=== PATIENT | male | born 1930 | race Caucasian/White ===

== ENCOUNTER 2017-07-10 10:41 | Emergency (ER) | payer MEDICARE, OTHER ==
[~2017-07-10] VITALS: Ht 167.6 cm; Wt 68.0 kg
[2017-07-10 11:05] LABS: BASOPHILS # (AUTO) 0.1 K/uL (0.0-8.0); BASOPHILS % (AUTO) 0.6 % (0.0-2.0); EOSINOPHILS % (AUTO) 0.4 % (0.0-7.0); HEMATOCRIT 46.3 % (36.7-47.1); HEMOGLOBIN 15.9 g/dL (12.5-16.3); LYMPHOCYTES # (AUTO) 6.8 K/uL (20.0-40.0); LYMPHOCYTES % (AUTO) 55.4 % (20.5-51.5); MEAN CORPUSCULAR HEMOGLOBIN 27.8 uug (23.8-33.4); MEAN CORPUSCULAR HGB CONC 34 g/dL (32.5-36.3); MONOCYTES # (AUTO) 0.7 K/uL (2.0-10.0); NEUTROPHILS # (AUTO) 4.6 K/uL (1.8-8.9); NEUTROPHILS % (AUTO) 37.6 % (38.5-71.5); PLATELET COUNT (AUTO) 178 K/uL (152-348); RED BLOOD CELL COUNT(AUTO) 5.72 MIL/uL (4.06-5.63); WHITE BLOOD COUNT (AUTO) 12.3 K/uL (3.6-10.2)
--- NOTE | 2017-07-10 11:11 | NUR ---
PT IS IN ROOM #2A. DR YU EVALUATED THE PT.
[2017-07-10 11:14] LABS: CARBON DIOXIDE 21 mmol/L (21-32); CHLORIDE 102 mmol/L (98-107); GLUCOSE 82 mg/dL (74-106); POTASSIUM 3.8 mmol/L (3.5-5.1); UREA NITROGEN, BLOOD 18 mg/dL (7-18)
[2017-07-10 11:20] LABS: ALANINE AMINOTRANSFERASE 32 U/L (16-63); ALKALINE PHOSPHATASE 56 U/L (50-136); ASPARTATE AMINOTRANSFERASE 25 U/L (15-37); BILIRUBIN,DIRECT 0.3 mg/dL (0.0-0.2); BILIRUBIN,TOTAL 1.1 mg/dL (0.2-1.0); TOTAL PROTEIN, SERUM 7.5 g/dL (6.4-8.2)
[2017-07-10] MEDS ORDERED: LORA-258 PO (11:22)
[2017-07-10] MEDS ORDERED: CITA40TA22 PO (11:22)
[2017-07-10] MEDS ORDERED: QUET25TA PO (11:22)
[2017-07-10] MEDS ORDERED: CITA20TA11 PO (11:22)
[2017-07-10] MEDS ORDERED: ROSU10TA PO (11:22)
[2017-07-10] MEDS ORDERED: LOSA50TA21 PO (11:22)
[2017-07-10] MEDS ORDERED: DONE5TAB34 PO (11:22)
[2017-07-10 12:11] LABS: BASOPHILS % (MANUAL) 1 % (0-2); LYMPHOCYTES % (MANUAL) 50 % (20-40); MONOCYTES % (MANUAL) 6 % (2-10); NEUTROPHILS % (MANUAL) 43 % (42-75)
--- NOTE | 2017-07-10 12:28 | NUR ---
PT WAS D/C TO HOME AFTER DR YU RE-EVALUATION. D/C INSTRUCTIONS GIVEN TO THE PT.
[2017-07-10 12:29] VITALS: BP 146/75
== END 2017-07-10 12:45 | disposition home or self-care (01) ==
LOC: ER 10:41
DX: S43.102A Unspecified dislocation of left acromioclavicular joint, initial encounter (principal); M25.512 Pain in left shoulder; Z88.5 Allergy status to narcotic agent; X58.XXXA Exposure to other specified factors, initial encounter; Y93.89 Activity, other specified; Y92.89 Other specified places as the place of occurrence of the external cause; Y99.8 Other external cause status
CPT/HCPCS: 36415; 70030-TC; 71045; 73030; 85025; 85730; 93005; A4663; J7030

== ENCOUNTER 2019-12-22 18:42 | Inpatient (IN) | payer MEDICARE, OTHER ==
[~2019-12-22] VITALS: Ht 165.1 cm; Wt 66.7 kg
[~2019-12-22 18:42] MED LIST: CITA20TA16 PO; CITA40TA22 PO; DONE5TAB34 PO; LORA-258 PO; LOSA50TA39 PO; QUET25TA PO; ROSU10TA2 PO
--- NOTE | 2019-12-22 18:47 | NUR ---
pt bib ra 83 from home co fever. pt speaking farsi only, poor historian. denies pain or sob. only co being cold. covid precautions implemented
[2019-12-22] MEDS ORDERED: ACETAMINOPHEN ES 500 MG TABLET PO ONE (19:00)
[2019-12-22] MEDS ORDERED: ACETAMINOPHEN ES 500 MG TABLET ONE (19:10)
[2019-12-22 19:14] LABS: BASOPHILS % (AUTO) 0.4 % (0.0-2.0); EOSINOPHILS % (AUTO) 0.2 % (0.0-7.0); HEMATOCRIT 36.3 % (36.7-47.1); HEMOGLOBIN 12.1 g/dL (12.5-16.3); LYMPHOCYTES # (AUTO) 2.5 K/uL (20.0-40.0); LYMPHOCYTES % (AUTO) 25.1 % (20.5-51.5); MEAN CORPUSCULAR HEMOGLOBIN 27.3 uug (23.8-33.4); MEAN CORPUSCULAR HGB CONC 33 g/dL (32.5-36.3); MONOCYTES # (AUTO) 0.8 K/uL (2.0-10.0); MONOCYTES % (AUTO) 8.3 % (0.0-11.0); NEUTROPHILS # (AUTO) 6.5 K/uL (1.8-8.9); PLATELET COUNT (AUTO) 110 K/uL (152-348); RED BLOOD CELL COUNT(AUTO) 4.43 MIL/uL (4.06-5.63); WHITE BLOOD COUNT (AUTO) 9.9 K/uL (3.6-10.2)
[2019-12-22 19:24] LABS: CREATININE 1.2 mg/dL (0.6-1.3); POTASSIUM 4.2 mmol/L (3.5-5.1)
[2019-12-22 19:41] LABS: BILIRUBIN,TOTAL 0.7 mg/dL (0.2-1.0); TOTAL PROTEIN, SERUM 6.7 g/dL (6.4-8.2)
--- NOTE | 2019-12-22 19:50 | NUR ---
Paged Epic panel credit and collections representative. Waiting for DR Juan Flores to call back.
[2019-12-22] MEDS ORDERED: AZITHROMYCIN IV 500 MG in IV DEXTROSE 5% 250 ML IV ONE (20:00)
[2019-12-22] MEDS ORDERED: CEFTRIAXONE 1 G in IV DEXTROSE 5% 50 ML IV ONE (20:00)
--- NOTE | 2019-12-22 20:00 | NUR ---
pt refused paniagua cath
[2019-12-22] MEDS ORDERED: CEFTRIAXONE /D5W 50ML IVPB **ER PYXIS IV ONE (20:01)
--- NOTE | 2019-12-22 20:16 | NUR ---
Dr. Baldwin on panel call with Dr. Martinez
[2019-12-22] MEDS ORDERED: AZITHROMYCIN 500MG/ D5W 250ML IVPB **ER PYXIS ONLY IV ONE (20:33)
--- NOTE | 2019-12-22 20:54 | NUR ---
Pt's temp 98.2
--- NOTE | 2019-12-22 21:00 | NUR ---
report given to ROXIE Arambula
--- NOTE | 2019-12-22 21:35 | NUR ---
PT admitted from ER via [place] under the care of with the dx of sepsis , pneumonia and r/o covid assisted assessment done.alert with periods of confusion,able to follow simple commands, denies pain , no facial grimaces of discomfort, no s/s of distress noted. IV line on right forearm 20 g patent and intact, no s/s of infiltration. Skin issues and photos taken .Call light with in reach .Will continue to monitor.
--- NOTE | 2019-12-22 21:43 | NUR ---
Pt. admitted to Tele Room 318 , under care of Dr. Martinez Belongs List completed, All belongings with pt no s/s of distress respirations even and unlabored transported pt via gurney 2 RNs
[2019-12-22] MEDS ORDERED: ONDANSETRON 4 MG/2 ML VIAL IV PRN (21:45)
[2019-12-22] MEDS ORDERED: MAGNESIUM HYDROXIDE 30 ML LIQUID UDC PO PRN (21:45)
[2019-12-22] MEDS ORDERED: LORAZEPAM 0.5 MG TABLET PO PRN (21:45)
[2019-12-22] MEDS ORDERED: Z GUARD REMEDY PASTE 57 GM TUBE TOP PRN (21:45)
[2019-12-22] MEDS ORDERED: ZOLPIDEM 5 MG TABLET PO PRN (21:45)
[2019-12-22] MEDS ORDERED: HYDROCODONE/APAP 5-325MG TABLET PO PRN (21:45)
[2019-12-22] MEDS ORDERED: ACETAMINOPHEN 325 MG TABLET PO PRN (21:45)
[2019-12-22 22:00] VITALS: BP 112/51
[2019-12-22] MEDS: IV NS 1000 ML 1,000 ML IV PRN (22:30)
[2019-12-22] MEDS ORDERED: ALBUTEROL SULFATE 2.5 MG/3 ML NEBU NEB PRN (22:45)
[2019-12-22] MEDS: ENOXAPARIN SODIUM 30 MG/0.3 ML DISP.SYRIN SQ SCH (23:03)
[2019-12-23 00:28] VITALS: BP 109/56
[2019-12-23 04:26] LABS: BASOPHILS % (AUTO) 0.2 % (0.0-2.0); EOSINOPHILS % (AUTO) 0.1 % (0.0-7.0); HEMATOCRIT 36.6 % (36.7-47.1); HEMOGLOBIN 12.3 g/dL (12.5-16.3); LYMPHOCYTES # (AUTO) 6.9 K/uL (20.0-40.0); LYMPHOCYTES % (AUTO) 47.4 % (20.5-51.5); MEAN CORPUSCULAR HEMOGLOBIN 27.3 uug (23.8-33.4); MEAN CORPUSCULAR HGB CONC 34 g/dL (32.5-36.3); MEAN CORPUSCULAR VOLUME 81.2 fL (73.0-96.2); NEUTROPHILS # (AUTO) 6.6 K/uL (1.8-8.9); NEUTROPHILS % (AUTO) 45.3 % (38.5-71.5); PLATELET COUNT (AUTO) 107 K/uL (152-348); RED BLOOD CELL COUNT(AUTO) 4.51 MIL/uL (4.06-5.63); WHITE BLOOD COUNT (AUTO) 14.7 K/uL (3.6-10.2)
[2019-12-23 04:47] LABS: THYROID STIMULATING HORMONE 0.78 mIU/mL (0.358-3.740)
[2019-12-23 04:48] LABS: CREATININE 1.1 mg/dL (0.6-1.3); PHOSPHOROUS 3.4 mg/dL (2.5-4.9); POTASSIUM 3.7 mmol/L (3.5-5.1)
[2019-12-23 05:10] VITALS: BP 144/55
[2019-12-23] MEDS: PANTOPRAZOLE SODIUM 40 MG TABLET.DR PO SCH (06:29)
--- NOTE | 2019-12-23 06:33 | NUR ---
Patient slept throughout the night, no s/s of distress noted, afebrile, on tele monitor sinus rhythm , on IV fluid running at 75 cc/hr ,IV site on left upper arm .Call light within reach.Safety measure and isolation implemented.Will endorse to the oncoming shift.
--- NOTE | 2019-12-23 07:41 | NUR ---
RECEIVED IN BED PATIENT IS ALERT BUT HAS LANGUAGE ISSUES ALL NEEDS ANTICIPATED AND SATISFIED REMAIN ON IVF ORDERED WITH NO S/S OF INFILTERATION ON SITE.ATTEMPTS ARE BEING MADE TO COLLECT URINE ORDERED.CALL LIGHTS AND PERSONAL BELONGINGS ARE WITHIN EASY REACH MADE COMFORTABLE WILL CONTINUE TO OBSERVE
[2019-12-23] MEDS: CHOLECALCIFEROL 1,000 UNIT TABLET PO SCH (08:23)
[2019-12-23] MEDS: CITALOPRAM 20 MG TABLET PO SCH (08:23)
[2019-12-23] MEDS: ASCORBIC ACID 500 MG TABLET PO SCH (08:24)
[2019-12-23] MEDS: LOSARTAN POTASSIUM 50 MG TABLET PO SCH (08:25)
[2019-12-23] MEDS: ZINC SULFATE 220 MG CAPSULE PO SCH (08:25)
[2019-12-23] MEDS: IV NS 1000 ML 1,000 ML IV PRN (11:45)
[2019-12-23 12:00] VITALS: BP 100/58
[2019-12-23 12:12] LABS: *BILIRUBIN,URIN NEGATIVE (NEGATIVE); *BLOOD, URINE 1+ (NEGATIVE); *CLARITY,URINE CLOUDY (CLEAR); *COLOR,URINE DARK YELLOW (YELLOW); *KETONES,URINE NEGATIVE (NEGATIVE); LEUKOCYTE ESTERASE ,URINE 3+ (NEGATIVE); NITRITE, URINE POSITIVE (NEGATIVE); UGLUCOSE NEGATIVE (NEGATIVE)
--- NOTE | 2019-12-23 12:25 | NUR ---
DR SPRINGER HERE TO SEE PATIENT PER PATIENTS HE IS HAVING PAIN ON HIS LEFT AND RIGHT KNEES MD NOTIFIED WITH ORDER TO DO XRAYS OF BOTH KNEES AND NOTED
[2019-12-23 16:00] LABS: BACTERIA,URINE 2+ /HPF (NONE SEEN); WBC,URINE 20-50 /HPF (0-3)
[2019-12-23 16:33] VITALS: BP 105/46
--- NOTE | 2019-12-23 17:46 | NUR ---
PER THE CHECK WRITER CALL RECEIVED FROM THE LAB THAT PATIENT IS COVID NEGATIVE.
--- NOTE | 2019-12-23 18:28 | NUR ---
PER THE TICKER INSTALLER PATIENT WILL BE SEEN BY THE INFECTIOUS DISEASE DR RENNER WHO WILL THEN MAKE THE DECISION IF PATIENT CAN BE OFF ISOLATION
--- NOTE | 2019-12-23 18:46 | NUR ---
ATTYANA SLITTING MACHINE OPERATOR HELPER HERE TO SEE PATIENT AWAITING FOR ORDERS.
--- NOTE | 2019-12-23 19:20 | NUR ---
Received pt in bed, awake. Patient has no s/s of acute distress or pain at this time. V/S stable, on room air saturating WNL. IV on RFA is intact with NS running at 75cc. Safety measures in place. Call light within reach. Bed low and locked in position. Will continue with the plan of care.
[2019-12-23 20:00] VITALS: BP 94/52
[2019-12-23] MEDS: DONEPEZIL 5 MG TABLET PO SCH (20:16)
[2019-12-23] MEDS: ATORVASTATIN 10 MG TABLET PO SCH (20:16)
[2019-12-23] MEDS: CEFEPIME HCL 1 G in IV DEXTROSE 5% 50 ML IV SCH (20:16)
[2019-12-23] MEDS: QUETIAPINE FUMARATE 25 MG TABLET PO SCH (20:16)
[2019-12-23] MEDS: ENOXAPARIN SODIUM 30 MG/0.3 ML DISP.SYRIN SQ SCH (20:19)
[2019-12-23] MEDS ORDERED: AZITHROMYCIN IV 500 MG in IV DEXTROSE 5% 250 ML IV SCH (21:00)
[2019-12-23] MEDS ORDERED: CEFTRIAXONE 1 G in IV DEXTROSE 5% 50 ML IV SCH (21:00)
--- NOTE | 2019-12-23 23:30 | NUR ---
Bladder scan shows 215 ml of urine. Will continue to monitor.
[2019-12-24] VITALS: BP 112/49
--- NOTE | 2019-12-24 02:00 | NUR ---
Bladder scan shows 650ml of urine. Initiated insertion of 16 fr. paniagua catheter per MD order. Paniagua is patent and draining garfield color urine. Will continue to monitor
[2019-12-24] MEDS: IV NS 1000 ML 1,000 ML IV PRN ×2 (03:07→16:45)
[2019-12-24 04:00] VITALS: BP 137/63
[2019-12-24] MEDS: PANTOPRAZOLE SODIUM 40 MG TABLET.DR PO SCH (06:06)
[2019-12-24 06:20] LABS: BASOPHILS % (AUTO) 0.4 % (0.0-2.0); EOSINOPHILS # (AUTO) 0.2 K/uL (0.0-0.7); EOSINOPHILS % (AUTO) 1.7 % (0.0-7.0); HEMATOCRIT 32.1 % (36.7-47.1); HEMOGLOBIN 10.9 g/dL (12.5-16.3); LYMPHOCYTES # (AUTO) 5.4 K/uL (20.0-40.0); LYMPHOCYTES % (AUTO) 51.6 % (20.5-51.5); MEAN CORPUSCULAR HEMOGLOBIN 27.5 uug (23.8-33.4); MEAN CORPUSCULAR HGB CONC 34 g/dL (32.5-36.3); MONOCYTES # (AUTO) 0.7 K/uL (2.0-10.0); NEUTROPHILS # (AUTO) 4.1 K/uL (1.8-8.9); NEUTROPHILS % (AUTO) 39.3 % (38.5-71.5); PLATELET COUNT (AUTO) 111 K/uL (152-348); RED BLOOD CELL COUNT(AUTO) 3.96 MIL/uL (4.06-5.63); WHITE BLOOD COUNT (AUTO) 10.5 K/uL (3.6-10.2)
[2019-12-24 06:48] LABS: CREATININE 0.9 mg/dL (0.6-1.3); MAGNESIUM 1.9 mg/dL (1.8-2.4); POTASSIUM 3.9 mmol/L (3.5-5.1)
--- NOTE | 2019-12-24 06:56 | NUR ---
Pt slept intermittently throughout the night. Patient is awake and has no s/s of acute distress or pain at this time.V/S stable on room air. NSR 69 on tele monitor. Patient on paniagua, draining well. Fall and aspiration precaution maintained. Comfort care and needs attended. Safety measures in place. Call light within reach. Will endorse to the oncoming nurse accordingly.
[2019-12-24] MEDS: CEFEPIME HCL 1 G in IV DEXTROSE 5% 50 ML IV SCH ×2 (08:13→20:24)
[2019-12-24] MEDS: CHOLECALCIFEROL 1,000 UNIT TABLET PO SCH (08:55)
[2019-12-24 08:56] VITALS: BP 134/61
[2019-12-24] MEDS: CITALOPRAM 20 MG TABLET PO SCH (08:56)
[2019-12-24] MEDS: ZINC SULFATE 220 MG CAPSULE PO SCH (08:56)
[2019-12-24] MEDS: ASCORBIC ACID 500 MG TABLET PO SCH (08:56)
[2019-12-24] MEDS: LOSARTAN POTASSIUM 50 MG TABLET PO SCH (08:57)
[2019-12-24 11:57] VITALS: BP 158/54
--- NOTE | 2019-12-24 14:50 | NUR ---
patient stayed in bed, PT eval in process, tolerated meals well, no sob, resp even nonlabored, no cough or congestion noted, saturating 98% at room air,on tele monitor, sinus rythm. skin warm and dry to touch, turned and repositioned every 2 hours, heels elevated. paniagua catheter in place, draining brown colored urine, on hydration fluids as ordered, no distress noted, continue to monitor, Addendum: 12/24/19 at 1454 by SAMANTHA AGUILAR RN, RN safety precautions are in place
[2019-12-24 16:10] VITALS: BP 115/58
--- NOTE | 2019-12-24 18:27 | NUR ---
noted with very yellow to light brown color of urine in catheter bag, PT eval done, patient ambulated with PT few steps.
--- NOTE | 2019-12-24 18:48 | NUR ---
noted right hand with pitting edema +2, elevated as tolerated, will continue to monitor, and endorse accordingly, IV site to right forearm is intact, no signs and symptoms of infiltration noted. no redness, no swelling noted at IV site.
[2019-12-24] MEDS: ATORVASTATIN 10 MG TABLET PO SCH (20:24)
[2019-12-24] MEDS: DONEPEZIL 5 MG TABLET PO SCH (20:24)
[2019-12-24] MEDS: QUETIAPINE FUMARATE 25 MG TABLET PO SCH (20:28)
[2019-12-24 20:30] VITALS: BP 134/52
[2019-12-24] MEDS ORDERED: TAMSULOSIN HCL 0.4 MG CAP.SR.24H PO SCH (21:00)
[2019-12-24] MEDS: ENOXAPARIN SODIUM 30 MG/0.3 ML DISP.SYRIN SQ SCH (21:19)
[2019-12-25] VITALS: BP 122/56
[2019-12-25 04:00] VITALS: BP 114/58
[2019-12-25] MEDS: PANTOPRAZOLE SODIUM 40 MG TABLET.DR PO SCH (06:07)
--- NOTE | 2019-12-25 06:28 | NUR ---
PATIENT ALERT BUT FORGETFUL NO SOB NO CHEST PAIN, PATIENT ON TELE MONITOR SINUS RHYTHM SINUS KAYLI FRANCISCO 50'S, MCFADDEN CATH PATENT DRAINING WITH YELLLOW COLOR URINE IN MODERATE AMOUNT, PATIENT HAS NO S/S OF PAIN AT THIS TIME, R ARM CONTINUE TO ELEVATE DUE SWELLING, PITTING EDEMA. CONT TO MONITOR.
[2019-12-25 06:32] LABS: BASOPHILS % (AUTO) 0.3 % (0.0-2.0); EOSINOPHILS # (AUTO) 0.3 K/uL (0.0-0.7); EOSINOPHILS % (AUTO) 2.5 % (0.0-7.0); HEMATOCRIT 34.1 % (36.7-47.1); HEMOGLOBIN 11.5 g/dL (12.5-16.3); LYMPHOCYTES # (AUTO) 5.8 K/uL (20.0-40.0); LYMPHOCYTES % (AUTO) 53.6 % (20.5-51.5); MEAN CORPUSCULAR HEMOGLOBIN 27.5 uug (23.8-33.4); MEAN CORPUSCULAR HGB CONC 34 g/dL (32.5-36.3); MEAN CORPUSCULAR VOLUME 81.5 fL (73.0-96.2); MONOCYTES # (AUTO) 0.8 K/uL (2.0-10.0); MONOCYTES % (AUTO) 7.1 % (0.0-11.0); NEUTROPHILS # (AUTO) 3.9 K/uL (1.8-8.9); NEUTROPHILS % (AUTO) 36.5 % (38.5-71.5); PLATELET COUNT (AUTO) 134 K/uL (152-348); RED BLOOD CELL COUNT(AUTO) 4.18 MIL/uL (4.06-5.63); WHITE BLOOD COUNT (AUTO) 10.8 K/uL (3.6-10.2)
[2019-12-25 06:55] LABS: CREATININE 0.9 mg/dL (0.6-1.3)
[2019-12-25 06:56] LABS: MAGNESIUM 1.9 mg/dL (1.8-2.4); PHOSPHOROUS 3.3 mg/dL (2.5-4.9)
[2019-12-25] MEDS: CEFEPIME HCL 1 G in IV DEXTROSE 5% 50 ML IV SCH (08:24)
[2019-12-25] MEDS: ASCORBIC ACID 500 MG TABLET PO SCH (08:24)
[2019-12-25] MEDS: LOSARTAN POTASSIUM 50 MG TABLET PO SCH (08:25)
[2019-12-25] MEDS: CHOLECALCIFEROL 1,000 UNIT TABLET PO SCH (09:15)
[2019-12-25] MEDS: ZINC SULFATE 220 MG CAPSULE PO SCH (09:15)
[2019-12-25] MEDS: CITALOPRAM 20 MG TABLET PO SCH (09:16)
[2019-12-25 11:47] VITALS: BP 113/50
[2019-12-25] MEDS ORDERED: ATOR10TA PO (18:29)
[2019-12-25] MEDS ORDERED: HYDR-3974 PO (18:29)
[2019-12-25] MEDS ORDERED: TAMS-3 PO (18:29)
[2019-12-25] MEDS ORDERED: PANT20TA2 PO (18:29)
== END 2019-12-25 15:15 | DRG 871 ==
LOC: ER 18:42 → TELE3 21:09
DX: A41.9 Sepsis, unspecified organism (principal); N17.0 Acute kidney failure with tubular necrosis; J98.11 Atelectasis; N39.0 Urinary tract infection, site not specified; M17.0 Bilateral primary osteoarthritis of knee; B96.5 Pseudomonas (aeruginosa) (mallei) (pseudomallei) as the cause of diseases classified elsewhere; Z92.21 Personal history of antineoplastic chemotherapy; G20 Parkinson's disease; F02.80 Dementia in other diseases classified elsewhere, unspecified severity, without behavioral disturbance, psychotic disturbance, mood disturbance, and anxiety; Z85.038 Personal history of other malignant neoplasm of large intestine; R74.0 Nonspecific elevation of levels of transaminase and lactic acid dehydrogenase [LDH]
CPT/HCPCS: 36415; 70030-TC; 71045; 76700; 83605; 83615; 83735; 84100; 84443; 85025; 85730; 86140; 87040; 87077; 87086; 93005; 93307; A4663; A9150; C1758; G0378; J0456; J0692; J0696; J1650; J3490; J7030; J7060; U0003-CS

== ENCOUNTER 2019-12-25 13:19 | Inpatient (IN) | payer MEDICARE, OTHER ==
[~2019-12-25] VITALS: Ht 165.1 cm; Wt 58.3 kg
[2019-12-25 16:23] VITALS: BP 135/62
[2019-12-25] MEDS ORDERED: TAMS-3 PO (18:29)
[2019-12-25] MEDS ORDERED: HYDR-3974 PO (18:29)
[2019-12-25] MEDS ORDERED: ATOR10TA PO (18:29)
[2019-12-25] MEDS ORDERED: PANT20TA2 PO (18:29)
[2019-12-25] MEDS ORDERED: LORAZEPAM 0.5 MG TABLET PO PRN (18:45)
[2019-12-25 20:00] VITALS: BP 121/42
[2019-12-25] MEDS: DONEPEZIL 5 MG TABLET PO SCH (20:11)
[2019-12-25] MEDS: levoFLOXacin 500 MG TABLET PO SCH (20:11)
[2019-12-25] MEDS: ATORVASTATIN 10 MG TABLET PO SCH (20:11)
[2019-12-25] MEDS: TAMSULOSIN HCL 0.4 MG CAP.SR.24H PO SCH (20:11)
[2019-12-25] MEDS: QUETIAPINE FUMARATE 25 MG TABLET PO SCH (20:14)
[2019-12-25] MEDS: HYDROCODONE/APAP 5-325MG TABLET PO PRN (20:15)
--- NOTE | 2019-12-25 20:53 | NUR ---
Received pt resting in bed and talking on the phone with family. No acute distress noted. C/o 6/10 pain on bilateral knees and legs, PRN pain med and other due meds given as ordered. Meds given crushed with pudding, tolerated well. Snacks given, with assist feeding and drinking. Turned and repositioned. Both heels offloaded. Safety measures maintained. Call light and personal items within reach. Will continue to monitor.
[2019-12-26 04:00] VITALS: BP 121/58
[2019-12-26] MEDS: PANTOPRAZOLE SODIUM 40 MG TABLET.DR PO SCH (06:13)
[2019-12-26 07:30] VITALS: BP 129/71
[2019-12-26] MEDS: CITALOPRAM 20 MG TABLET PO SCH (09:20)
[2019-12-26] MEDS: LOSARTAN POTASSIUM 50 MG TABLET PO SCH (09:20)
--- NOTE | 2019-12-26 09:30 | NUR ---
Patient is awake, alert, not in any form of distress, on room air. He denies any pain or discomfort at this time. Assisted patient with his feeding. Due medications administered crushed and tolerated well. Needs attended to promptly and met. Peripheral IV site 20 on the right wrist in place and patent with no signs of infection. Salter catheter intact, patent, draining clear yellow urine. Call light and frequently used items placed within patient's reach. Safety measures maintained.
[2019-12-26 15:53] VITALS: BP 117/56
--- NOTE | 2019-12-26 16:19 | NUR ---
INTERDISCIPLINARY TEAM CONFERENCE
[2019-12-26] MEDS: CARBIDOPA/LEVODOPA 25-100MG TABLET PO SCH ×2 (17:49→20:09)
--- NOTE | 2019-12-26 18:30 | NUR ---
Per Dr. Goss refer patient to neurology for hand tremors and was patient seen by Dr. Ivan and put in new orders.
[2019-12-26] MEDS: METHYL SALICYLATE/MENTHOL CREAM 28 GM TUBE TOP SCH ×2 (20:00→22:00)
[2019-12-26] MEDS: ATORVASTATIN 10 MG TABLET PO SCH (20:08)
[2019-12-26] MEDS: DONEPEZIL 5 MG TABLET PO SCH (20:08)
[2019-12-26] MEDS: levoFLOXacin 500 MG TABLET PO SCH (20:08)
[2019-12-26] MEDS: QUETIAPINE FUMARATE 25 MG TABLET PO SCH (20:09)
[2019-12-26] MEDS: TAMSULOSIN HCL 0.4 MG CAP.SR.24H PO SCH (20:09)
[2019-12-26 21:21] VITALS: BP 131/57
--- NOTE | 2019-12-26 23:30 | NUR ---
Received pt resting in bed. No acute distress noted. Denies pain/ discomfort. Due meds given as ordered. Meds given crushed with pudding, tolerated well. Snacks given, with assist feeding and drinking. Turned and repositioned. Both heels offloaded. Salter catheter in place, draining clear yellow colored urine. Safety measures maintained. Call light and personal items within reach. Will continue to monitor.
[2019-12-27] MEDS: HYDROCODONE/APAP 5-325MG TABLET PO PRN ×2 (04:43→09:18)
[2019-12-27 04:58] VITALS: BP 142/70
[2019-12-27] MEDS: METHYL SALICYLATE/MENTHOL CREAM 28 GM TUBE TOP SCH ×3 (05:43→21:04)
--- NOTE | 2019-12-27 06:02 | NUR ---
Salter catheter removed, pt tolerated well. Pt's temperature 99.6 F, cooling measures provided, given bed bath. [place] PRN given for pain. Will endorse accordingly to oncoming shift. Continue to monitor.
[2019-12-27] MEDS: PANTOPRAZOLE SODIUM 40 MG TABLET.DR PO SCH (06:04)
[2019-12-27 06:43] LABS: BASOPHILS % (AUTO) 0.3 % (0.0-2.0); EOSINOPHILS # (AUTO) 0.1 K/uL (0.0-0.7); HEMATOCRIT 32.4 % (36.7-47.1); LYMPHOCYTES # (AUTO) 4.9 K/uL (20.0-40.0); MEAN CORPUSCULAR HEMOGLOBIN 27.4 uug (23.8-33.4); MEAN CORPUSCULAR HGB CONC 34 g/dL (32.5-36.3); MEAN CORPUSCULAR VOLUME 80.9 fL (73.0-96.2); MONOCYTES # (AUTO) 1.1 K/uL (2.0-10.0); MONOCYTES % (AUTO) 9.4 % (0.0-11.0); NEUTROPHILS # (AUTO) 5.5 K/uL (1.8-8.9); NEUTROPHILS % (AUTO) 47.3 % (38.5-71.5); PLATELET COUNT (AUTO) 170 K/uL (152-348); WHITE BLOOD COUNT (AUTO) 11.7 K/uL (3.6-10.2)
[2019-12-27 07:02] LABS: CREATININE 0.8 mg/dL (0.6-1.3); POTASSIUM 4.1 mmol/L (3.5-5.1)
[2019-12-27 08:00] VITALS: BP 150/67
[2019-12-27] MEDS: LOSARTAN POTASSIUM 50 MG TABLET PO SCH (08:52)
[2019-12-27] MEDS: CITALOPRAM 20 MG TABLET PO SCH (08:52)
[2019-12-27] MEDS: CARBIDOPA/LEVODOPA 25-100MG TABLET PO SCH ×4 (08:52→20:53)
--- NOTE | 2019-12-27 13:20 | NUR ---
Received patient awake in bed in stable condition. Patient seen and examined by MD Goss. Patient left knee joint fluid remove by MD Goss with 12ml yellowish output-sent to lab for analysis and culture. Awaiting result. Patient discontinue paniagua catheter as ordered, catheter remove at 6am as per endorse. Patient continue ATB levaquin 500mg every 24hours for UTI. Patient no urine output until 1pm. Bladder scan- 362ml, straight catheter done with 620ml urine, yellowish with red color output. no foul smell noted. will continue monitor
[2019-12-27] MEDS: MAGNESIUM HYDROXIDE 30 ML LIQUID UDC PO PRN (14:51)
[2019-12-27 16:00] VITALS: BP 130/68
[2019-12-27] MEDS: levoFLOXacin 500 MG TABLET PO SCH (18:43)
[2019-12-27 20:03] VITALS: BP 122/52
[2019-12-27] MEDS: DONEPEZIL 5 MG TABLET PO SCH (20:52)
[2019-12-27] MEDS: ATORVASTATIN 10 MG TABLET PO SCH (20:52)
[2019-12-27] MEDS: QUETIAPINE FUMARATE 25 MG TABLET PO SCH (20:53)
[2019-12-27] MEDS: TAMSULOSIN HCL 0.4 MG CAP.SR.24H PO SCH (20:53)
--- NOTE | 2019-12-27 22:21 | NUR ---
Received patient in bed, head of bed elevated at 45 degrees. In no respiratory distress. No facial grimacing observed. Patient still with no urinary output since previous shift. Bladder scan done- 377mL. Straight catheter done per MD order, obtained 400mL of urine, garfield with few blood clots. Patient tolerated procedure well. Will continue to observe patient and monitor urinary output. Will continue to observe fall and safety precautions. Will continue to attend and anticipate needs.
--- NOTE | 2019-12-28 | NUR ---
Fluid analysis result of left knee aspiration relayed to Dr. Goss with no new order. Also made aware that culture of fluid is still pending.
[2019-12-28 04:03] VITALS: BP 125/68
[2019-12-28] MEDS: PANTOPRAZOLE SODIUM 40 MG TABLET.DR PO SCH (06:27)
[2019-12-28] MEDS: METHYL SALICYLATE/MENTHOL CREAM 28 GM TUBE TOP SCH ×3 (06:28→21:02)
--- NOTE | 2019-12-28 06:46 | NUR ---
Patient still with no urinary output. Bladder scan done- 384mL. Straight catheter done per MD order, obtained 610mL of urine, garfield with few blood clots. Patient tolerated procedure. Will endorse to AM nurse accordingly. All needs attended. Fall and safety precautions observed.
[2019-12-28 08:00] VITALS: BP 129/79
[2019-12-28] MEDS: CARBIDOPA/LEVODOPA 25-100MG TABLET PO SCH ×4 (09:08→21:01)
[2019-12-28] MEDS: LOSARTAN POTASSIUM 50 MG TABLET PO SCH (09:09)
[2019-12-28] MEDS: HYDROCODONE/APAP 5-325MG TABLET PO PRN ×2 (09:11→21:03)
[2019-12-28] MEDS: AMANTADINE HCL 100 MG CAPSULE PO SCH ×2 (10:20→21:02)
--- NOTE | 2019-12-28 12:49 | NUR ---
INDIVIDUALIZED PLAN OF CARE
--- NOTE | 2019-12-28 15:34 | NUR ---
straight cath performed with out put of 800ml garfield color urine
[2019-12-28 16:13] VITALS: BP 130/77
[2019-12-28] MEDS: MAGNESIUM HYDROXIDE 30 ML LIQUID UDC PO PRN (17:48)
--- NOTE | 2019-12-28 18:31 | NUR ---
no distress noted during shift, PT, OT tolerated well, kept clean and dry, heels floated, repositioned every 2 hours while in bed to relieve the pressure.
--- NOTE | 2019-12-28 18:54 | NUR ---
Patient noted with no BM, milk of magnesium administered as ordered, continue to monitor, will endorse accordingly
--- NOTE | 2019-12-28 19:30 | NUR ---
RECEIVED PT IN NO ACUTE DISTRESS WITH HEAD OF BED ELEVATED. SAFETY AND COMFORT PROVIDED. WILL CONTINUE TO MONITOR.
[2019-12-28 20:55] VITALS: BP 136/71
[2019-12-28] MEDS: DONEPEZIL 5 MG TABLET PO SCH (21:01)
[2019-12-28] MEDS: ATORVASTATIN 10 MG TABLET PO SCH (21:02)
[2019-12-28] MEDS: QUETIAPINE FUMARATE 25 MG TABLET PO SCH (21:02)
--- NOTE | 2019-12-28 23:40 | NUR ---
HANDS OFF REPORT TO NICK FAUSTIN. PT IN NO ACUTE DISTRESS. D/C BLADDER SCAN BECAUSE PT HAS MCFADDEN CATHETER INSERTED. ORDERED BY JOY JIMENEZ. SAFETY AND COMFORT PROVIDED. PT IN STABLE CONDITION.
[2019-12-29 04:08] VITALS: BP 134/68
[2019-12-29] MEDS: PANTOPRAZOLE SODIUM 40 MG TABLET.DR PO SCH (06:09)
[2019-12-29] MEDS: METHYL SALICYLATE/MENTHOL CREAM 28 GM TUBE TOP SCH ×3 (06:09→23:07)
--- NOTE | 2019-12-29 06:17 | NUR ---
PATIENT ALERT BUT FORGETFUL, NO S/S OF PAIN NOR DISCOMFORT. PATIENT MCFADDEN CATH PATENT DRAINING WITH TEA COLOR URINE IN SMALL AMOUNT. PATIENT WAS KEPT CLEAN AND DRY, CALL LIGHT WITHIN REACH. CONT TO MONITOR.
[2019-12-29] MEDS: AMANTADINE HCL 100 MG CAPSULE PO SCH ×2 (08:24→20:33)
[2019-12-29] MEDS: CARBIDOPA/LEVODOPA 25-100MG TABLET PO SCH ×3 (08:24→17:08)
[2019-12-29] MEDS: LOSARTAN POTASSIUM 50 MG TABLET PO SCH (08:24)
[2019-12-29] MEDS: HYDROCODONE/APAP 5-325MG TABLET PO PRN (09:00)
[2019-12-29 09:07] VITALS: BP 135/71
--- NOTE | 2019-12-29 11:48 | NUR ---
Received patient awake in bed in stable condition. Patient continue with paniagua catheter for urine retention. Intact and patent, Rose color and cloudy urine, no foul smell noted. Patient left knee swelling. Applied cold compress. Patient continue pain management prior to therapy with good effect. Patient continue monitoring by neurologist for tremors. Patient continue sinemet, no adverse reaction noted. will continue monitor
--- NOTE | 2019-12-29 12:11 | NUR ---
Received patient awake in bed. Patient continue on paniagua catheter with yellow color urine. Intact and patent. Patient continue therapy for increase strenght and therapeutic exercises. Patient continue pain management prior to therapy with good effect. Patient continue following by neurologist for tremors. Patient ongoing sinemet with fair effect. will continue monitor
--- NOTE | 2019-12-29 15:15 | NUR ---
Patient seen and examined by MD Ivan, order increase dose of sinemet 25-100mg in morning. will continue monitor
[2019-12-29 16:05] VITALS: BP 132/68
[2019-12-29] MEDS ORDERED: CARBIDOPA/LEVODOPA 25-100MG TABLET PO SCH (18:00)
--- NOTE | 2019-12-29 19:00 | NUR ---
PATIENT AWAKE BUT FORGETFUL NO SOB NO CHEST PAIN. PATIENT HAS NO COMPLAIN OF PAIN AT THIS TIME. PATIENT MCFADDEN CATH PATENT DRAINING WITH TEA COLOR URINE IN MODERATE AMOUNT. MD WAS AWARE OF TEA COLOR URINE WITH NO FURTHER ORDER. PATIENT KEPT CLEAN AND DRY, CONT TO MONITOR.
[2019-12-29 20:00] VITALS: BP 124/55
[2019-12-29 20:21] VITALS: BP 129/58
[2019-12-29] MEDS: QUETIAPINE FUMARATE 25 MG TABLET PO SCH (20:33)
[2019-12-29] MEDS: TAMSULOSIN HCL 0.4 MG CAP.SR.24H PO SCH (20:33)
[2019-12-29] MEDS: ATORVASTATIN 10 MG TABLET PO SCH (20:33)
[2019-12-29] MEDS: DONEPEZIL 5 MG TABLET PO SCH (20:37)
[2019-12-30] MEDS: METHYL SALICYLATE/MENTHOL CREAM 28 GM TUBE TOP SCH ×3 (05:03→21:08)
[2019-12-30] MEDS ORDERED: CARBIDOPA/LEVODOPA 25-100MG TABLET PO SCH (06:00)
[2019-12-30] MEDS: PANTOPRAZOLE SODIUM 40 MG TABLET.DR PO SCH (06:36)
[2019-12-30 06:38] VITALS: BP 130/64
--- NOTE | 2019-12-30 06:38 | NUR ---
PATIENT ASLEEP BUT EASILY AROUSABLE, NO COMPLAIN OF PAIN AT THIS TIME. PATIENT MCFADDEN CATH PATENT DRAINING WITH YELLOW TO TEA COLOR URINE, TURN AND REPOSITION, KEPT COMFORTABLE. CONT TO MONITOR.
[2019-12-30] MEDS: AMANTADINE HCL 100 MG CAPSULE PO SCH ×2 (08:19→20:39)
[2019-12-30] MEDS: LOSARTAN POTASSIUM 50 MG TABLET PO SCH (08:19)
[2019-12-30] MEDS: HYDROCODONE/APAP 5-325MG TABLET PO PRN ×2 (08:48→16:14)
[2019-12-30] MEDS: CARBIDOPA/LEVODOPA 25-100MG TABLET PO SCH ×3 (10:06→17:52)
[2019-12-30 10:57] VITALS: BP 117/85
--- NOTE | 2019-12-30 11:11 | NUR ---
Received patient awake in bed in stable condition. Patient continue assisting in feeding for aspiration precaution. Patient continue therapy for increase participation in ADL and therapeutic exercises. Patient provided pain management prior to therapy. tolerated well. Patient continue Salter catheter for increase urinary retention. Intact and patent. not in distress. will continue monitor
[2019-12-30] MEDS ORDERED: LIDOCAINE HCL 1% 20 ML VIAL IJ ONE (12:30)
[2019-12-30] MEDS ORDERED: TRIAMCINOLONE ACETONIDE 40 MG/1 ML VIAL IM ONE (12:30)
--- NOTE | 2019-12-30 13:31 | NUR ---
TEXTED DR. GROVER FOR MRI APPROVAL.
--- NOTE | 2019-12-30 15:44 | NUR ---
Patient seen and examined by MD Goss, ketanol injection given for pain management by . Also, ordered MRI of brain without contrast for R/O CVA. Patient will transport to [place] [facility] around 4pm. Patient seen and examined by MD Ivan with order increase sinemet 25-100mg 2 tabs at 10am, to start tomorrow. will continue monitor
[2019-12-30 15:50] VITALS: BP 133/96
[2019-12-30] MEDS ORDERED: ACETAMINOPHEN 325 MG TABLET PO PRN (16:00)
[2019-12-30] MEDS ORDERED: ACETAMINOPHEN/CODEINE 300-30 MG TABLET PO PRN (18:45)
[2019-12-30 20:00] VITALS: BP 147/79
[2019-12-30] MEDS: QUETIAPINE FUMARATE 25 MG TABLET PO SCH (20:39)
[2019-12-30] MEDS: TAMSULOSIN HCL 0.4 MG CAP.SR.24H PO SCH (20:39)
[2019-12-30] MEDS: DONEPEZIL 5 MG TABLET PO SCH (20:39)
--- NOTE | 2019-12-31 01:02 | NUR ---
awake alert and oriented x2-3 . Farsi speaking but able to make needs known. Tolerated po meds well. No nausea or vomiting noted. Denies any pain nor any discomfort. VSS. PM care done. Salter catheter intact draining garfield urine. BM noted this shift. Kept comfortable. Fall precautions maintained. Siderails up for safety. Will monitor patient.
[2019-12-31 04:00] VITALS: BP 142/79
[2019-12-31] MEDS: CARBIDOPA/LEVODOPA 25-100MG TABLET PO SCH ×4 (05:31→18:18)
[2019-12-31] MEDS: METHYL SALICYLATE/MENTHOL CREAM 28 GM TUBE TOP SCH ×3 (05:32→22:28)
[2019-12-31] MEDS: PANTOPRAZOLE SODIUM 40 MG TABLET.DR PO SCH (06:09)
--- NOTE | 2019-12-31 06:34 | NUR ---
End of shift note: Slept well most of the shift. No acute distress noted. Kept comfortable. No acute distress noted. Will monitor patient. VSS.Salter catheter intact draining garfield urine.
[2019-12-31 08:36] VITALS: BP 140/70
[2019-12-31] MEDS: AMANTADINE HCL 100 MG CAPSULE PO SCH ×2 (09:14→20:54)
[2019-12-31] MEDS: LOSARTAN POTASSIUM 50 MG TABLET PO SCH (09:14)
[2019-12-31] MEDS ORDERED: CARBIDOPA/LEVODOPA 25-100MG TABLET PO SCH (10:00)
[2019-12-31 16:45] VITALS: BP 125/68
--- NOTE | 2019-12-31 19:45 | NUR ---
Sleeping during initial rounds. No s/s of pain or discomforts noted. No s/s of respiratory distress. Safety measures and fall prevention maintained. Continue care as planned.
[2019-12-31 20:01] VITALS: BP 115/55
[2019-12-31] MEDS: DONEPEZIL 5 MG TABLET PO SCH (20:51)
[2019-12-31] MEDS: TAMSULOSIN HCL 0.4 MG CAP.SR.24H PO SCH (20:52)
[2019-12-31] MEDS: QUETIAPINE FUMARATE 25 MG TABLET PO SCH (20:52)
[2020-01-01 04:43] VITALS: BP 140/68
[2020-01-01] MEDS: CARBIDOPA/LEVODOPA 25-100MG TABLET PO SCH ×4 (05:41→17:47)
[2020-01-01] MEDS: PANTOPRAZOLE SODIUM 40 MG TABLET.DR PO SCH (05:41)
[2020-01-01] MEDS: METHYL SALICYLATE/MENTHOL CREAM 28 GM TUBE TOP SCH ×3 (05:41→22:02)
--- NOTE | 2020-01-01 06:03 | NUR ---
Shift End Report: Slept well. No complaint presented all night. All needs attended and met. No significant event reported . Continue current plan of care.
[2020-01-01 06:42] LABS: BASOPHILS % (AUTO) 0.1 % (0.0-2.0); EOSINOPHILS % (AUTO) 0.1 % (0.0-7.0); HEMATOCRIT 35.7 % (36.7-47.1); HEMOGLOBIN 11.6 g/dL (12.5-16.3); LYMPHOCYTES # (AUTO) 4.7 K/uL (20.0-40.0); LYMPHOCYTES % (AUTO) 33.5 % (20.5-51.5); MEAN CORPUSCULAR HEMOGLOBIN 26.5 uug (23.8-33.4); MEAN CORPUSCULAR HGB CONC 33 g/dL (32.5-36.3); MEAN CORPUSCULAR VOLUME 81.4 fL (73.0-96.2); MONOCYTES # (AUTO) 0.9 K/uL (2.0-10.0); MONOCYTES % (AUTO) 6.3 % (0.0-11.0); NEUTROPHILS # (AUTO) 8.4 K/uL (1.8-8.9); PLATELET COUNT (AUTO) 320 K/uL (152-348); RED BLOOD CELL COUNT(AUTO) 4.39 MIL/uL (4.06-5.63); WHITE BLOOD COUNT (AUTO) 13.9 K/uL (3.6-10.2)
[2020-01-01 06:45] LABS: BILIRUBIN,TOTAL 0.3 mg/dL (0.2-1.0); CREATININE 0.8 mg/dL (0.6-1.3); MAGNESIUM 2.3 mg/dL (1.8-2.4); PHOSPHOROUS 3.7 mg/dL (2.5-4.9); POTASSIUM 4.2 mmol/L (3.5-5.1); TOTAL PROTEIN, SERUM 6.7 g/dL (6.4-8.2)
[2020-01-01 07:30] VITALS: BP 137/76
[2020-01-01] MEDS: LOSARTAN POTASSIUM 50 MG TABLET PO SCH (08:56)
[2020-01-01] MEDS: AMANTADINE HCL 100 MG CAPSULE PO SCH ×2 (08:56→20:32)
[2020-01-01] MEDS: HYDROCODONE/APAP 5-325MG TABLET PO PRN (09:04)
[2020-01-01 16:13] VITALS: BP 109/89
--- NOTE | 2020-01-01 18:30 | NUR ---
Patient alert, oriented x 3, not in any form of distress, on room air. He denies any pain or discomfort. Hand tremors still noted. Patient compliant with medications. Salter catheter in place and patent,draining clear yellow urine. Urine specimen collected and sent to lab. Assisted patient with meals as requested by patient due to tremors. Patient seen by Dr. Ivan and wanted contact information of patient's pyschiatrist. Will follow up with daughter Kalpana. Patient seen by Dr. Gifford, informed MD regarding increased WBC with no new order at this time and said he will look into it. Needs attended to promptly. Call light and frequently used items placed within patient's reach. Will endorse accordingly to check viewer nurse.
[2020-01-01 19:15] LABS: *BILIRUBIN,URIN NEGATIVE (NEGATIVE); *BLOOD, URINE 2+ (NEGATIVE); *CLARITY,URINE CLEAR (CLEAR); *COLOR,URINE YELLOW (YELLOW); *KETONES,URINE NEGATIVE (NEGATIVE); *UROBILINOGEN,URINE 0.2 E.U./dl (NORMAL); LEUKOCYTE ESTERASE ,URINE TRACE (NEGATIVE); NITRITE, URINE NEGATIVE (NEGATIVE); PH,URINE >=9.0 (5.0-8.0); UGLUCOSE NEGATIVE (NEGATIVE)
--- NOTE | 2020-01-01 19:40 | NUR ---
Awake, alert and watching TV at this time. Denies any pain/discomforts at this time. Safety measures and fall precaution maintained. Continue care as planned.
[2020-01-01 20:08] VITALS: BP 149/61
--- NOTE | 2020-01-01 20:15 | NUR ---
Left message to Dr Bennett regarding Dr Ivan's request to have him see the patient.
--- NOTE | 2020-01-01 20:23 | NUR ---
Dr Bennett called back and acknowledging receipt of message sent/left. Charge nurse aware.
[2020-01-01] MEDS: DONEPEZIL 5 MG TABLET PO SCH (20:32)
[2020-01-01] MEDS: QUETIAPINE FUMARATE 25 MG TABLET PO SCH (20:32)
[2020-01-01] MEDS: TAMSULOSIN HCL 0.4 MG CAP.SR.24H PO SCH (20:32)
[2020-01-01 21:57] LABS: BACTERIA,URINE FEW /HPF (NONE SEEN); SQUAMOUS EPITHELIAL CELL,UR FEW /HPF (NONE SEEN); WBC,URINE 0-3 /HPF (0-3)
[2020-01-02 04:00] VITALS: BP 139/65
[2020-01-02] MEDS: CARBIDOPA/LEVODOPA 25-100MG TABLET PO SCH ×4 (05:23→17:20)
[2020-01-02] MEDS: METHYL SALICYLATE/MENTHOL CREAM 28 GM TUBE TOP SCH ×2 (05:24→13:36)
--- NOTE | 2020-01-02 05:34 | NUR ---
Shift End Report: Slept well. No significant event reported all night. VS stable. Continue current rehab plan of care.
[2020-01-02] MEDS: PANTOPRAZOLE SODIUM 40 MG TABLET.DR PO SCH (06:24)
[2020-01-02] MEDS: LOSARTAN POTASSIUM 50 MG TABLET PO SCH (08:14)
[2020-01-02 08:15] VITALS: BP 142/69
[2020-01-02] MEDS: AMANTADINE HCL 100 MG CAPSULE PO SCH ×2 (08:15→21:04)
[2020-01-02] MEDS ORDERED: BISACODYL 10 MG SUPP.RECT RC ONE (09:30)
--- NOTE | 2020-01-02 09:39 | NUR ---
patient stated he feels constipated, requested ducolax suppository, order obtained and administered as ordered. Addendum: 01/02/20 at 0941 by SAMANTHA AGUILAR RN, RN continue to monitor for effectiveness Addendum: 01/02/20 at 1105 by SAMANTHA AGUILAR RN, RN SUPPOSITORY EFFECTIVE, PATIENT BROUGHT TO THE TOILET AND HAD LARGE BM
--- NOTE | 2020-01-02 11:10 | NUR ---
MCFADDEN CATHETER INTACT, DRAINING YELLOW COLOR URINE.
--- NOTE | 2020-01-02 14:57 | NUR ---
INTERDISCIPLINARY TEAM CONFERENCE
--- NOTE | 2020-01-02 15:23 | NUR ---
patient family and daughter naima called, and stated they would like to get patient up in chair in warrant server,and stay on chair as much as he can. will endorse accordingly, patient ate his lunch in chair, participated with PT, OT tolerated well, able to ambulate to the bathroom with one person assist, still noted with tremors however patient is able to manage eating himself. continue to monitor, needs attended timely, taking nap at this time, no distress noted.
[2020-01-02 15:35] VITALS: BP 135/60
--- NOTE | 2020-01-02 16:21 | NUR ---
SPOKE TO DR ZHENG PROPERTY UTILIZATION OFFICER FROM OFFICE STATED DR ZHENG IS AWARE ABOUT THE CONSULT Addendum: 01/02/20 at 1622 by SAMANTHA AGUILAR RN, RN CALLED AT NUMBER [phone]
--- NOTE | 2020-01-02 16:26 | NUR ---
ORDER OBTAINED TO REMOVE MCFADDEN CATHETER, WILL CONTINUE TO MONITOR FOR VOIDING,WILL ENDORSE ACCORDINGLY
--- NOTE | 2020-01-02 19:34 | NUR ---
endorsed to shift production associate nurse to endorse in the morning to get up patient early as family request and patient request
--- NOTE | 2020-01-02 19:40 | NUR ---
Received patient up in wheelchair having his dinner inside room. No s/s of respiratory distress. Denied any pain/discomforts at this time, Safety measures and fall prevention maintained. Seen and evaluated by Dr Bennett. Continue care as planned.
[2020-01-02 20:23] VITALS: BP 136/69
[2020-01-02] MEDS ORDERED: ZOLPIDEM 5 MG TABLET PO SCH (21:00)
[2020-01-02] MEDS ORDERED: ZOLPIDEM 5 MG TABLET PO PRN (21:00)
[2020-01-02] MEDS: QUETIAPINE FUMARATE 25 MG TABLET PO SCH (21:04)
[2020-01-02] MEDS: TAMSULOSIN HCL 0.4 MG CAP.SR.24H PO SCH (21:04)
[2020-01-02] MEDS: DONEPEZIL 5 MG TABLET PO SCH (21:04)
[2020-01-03] MEDS: METHYL SALICYLATE/MENTHOL CREAM 28 GM TUBE TOP SCH ×4 (00:25→21:05)
[2020-01-03 05:26] VITALS: BP 120/60
[2020-01-03] MEDS: CARBIDOPA/LEVODOPA 25-100MG TABLET PO SCH ×4 (05:40→18:02)
[2020-01-03] MEDS: PANTOPRAZOLE SODIUM 40 MG TABLET.DR PO SCH (05:41)
--- NOTE | 2020-01-03 06:50 | NUR ---
Shift End Report: Slept good. No complaint presented all night. All needs attended and met. No fall/injury. No significant event reported. Continue current rehab plan of care.
[2020-01-03 07:30] VITALS: BP 136/70
[2020-01-03] MEDS: LOSARTAN POTASSIUM 50 MG TABLET PO SCH (08:52)
[2020-01-03] MEDS: CLONAZEPAM 0.5 MG TABLET PO SCH ×2 (08:52→15:41)
[2020-01-03] MEDS: AMANTADINE HCL 100 MG CAPSULE PO SCH ×2 (08:52→20:58)
--- NOTE | 2020-01-03 10:55 | NUR ---
Patient received sitting up on w/c at the start of the shift. No acute distress noted. Pt. is AAO x 1-2, Farsi speaking mostly; able to express needs. Vital signs stable for patient. Medications administered as ordered and scheduled. Patient on Klonopin 0.25mg PO half a tab. On continuos PT/OT therapy. Patient is ambulatory with a walker and one person assist. Needs attended, safety measures in place, call light left at bed side and will continue with care.
[2020-01-03] MEDS: MAGNESIUM HYDROXIDE 30 ML LIQUID UDC PO PRN (14:40)
[2020-01-03 16:00] VITALS: BP 131/62
--- NOTE | 2020-01-03 16:39 | NUR ---
No complains of pain during shift, NO SOB noted. patient voided clear yellow urine. Patient been talking to family through face time. Needs attended, safety measures in place and will continue with care.
--- NOTE | 2020-01-03 17:31 | NUR ---
Patient noted with full diaper. Did bladder scan and patient noted with 314cc of urine. Informed TESTER WAFER SUBSTRATE with an order to do bladder scan after each void to catheterize patient if above 350cc.
[2020-01-03 20:02] VITALS: BP 129/59
[2020-01-03] MEDS: TAMSULOSIN HCL 0.4 MG CAP.SR.24H PO SCH (20:58)
[2020-01-03] MEDS: QUETIAPINE FUMARATE 25 MG TABLET PO SCH (20:58)
[2020-01-03] MEDS: DONEPEZIL 5 MG TABLET PO SCH (20:58)
--- NOTE | 2020-01-03 21:39 | NUR ---
awake alert and oriented x2-3 No acute distress noted. patient had an episode of incontinence this shift, voided moderate amount of urine. Bladder scan done. noted 264cc in bladder. Kept clean and dry. VSS. Needs attended. Fall precautions maintained. Call abdalla within reach. Bed alarm on. Tolerated po meds well. Will monitor patient. Siderails up for safety. No complaints presented during shift.
[2020-01-04] MEDS: CARBIDOPA/LEVODOPA 25-100MG TABLET PO SCH ×6 (05:43→20:28)
[2020-01-04] MEDS: METHYL SALICYLATE/MENTHOL CREAM 28 GM TUBE TOP SCH ×3 (05:43→22:01)
--- NOTE | 2020-01-04 06:12 | NUR ---
End of shift note: Slept most of the shift. AAOx2-3 OOB to the BR with walker. Gait unsteady. Fall risk maintained. Incontinent of urine. Bladder scan 249 noted. Will monitor patient.VSS.
[2020-01-04 06:28] VITALS: BP 135/71
[2020-01-04] MEDS: PANTOPRAZOLE SODIUM 40 MG TABLET.DR PO SCH (06:28)
[2020-01-04] MEDS: CLONAZEPAM 0.5 MG TABLET PO SCH ×2 (08:57→14:54)
[2020-01-04] MEDS: LOSARTAN POTASSIUM 50 MG TABLET PO SCH (08:57)
[2020-01-04] MEDS: AMANTADINE HCL 100 MG CAPSULE PO SCH ×2 (08:58→20:28)
[2020-01-04] MEDS: MAGNESIUM HYDROXIDE 30 ML LIQUID UDC PO PRN (08:59)
--- NOTE | 2020-01-04 18:57 | NUR ---
post void bladder scan 47ml
[2020-01-04 19:40] VITALS: BP 106/79
[2020-01-04] MEDS: DONEPEZIL 5 MG TABLET PO SCH (20:28)
[2020-01-04] MEDS: TAMSULOSIN HCL 0.4 MG CAP.SR.24H PO SCH (20:28)
[2020-01-04] MEDS: QUETIAPINE FUMARATE 25 MG TABLET PO SCH (20:29)
--- NOTE | 2020-01-05 03:11 | NUR ---
Received patient in bed, AAO x3 with episodes of forgetfulness. No acute distress or SOB was noted. On room air. No complain of pain. All due medications administered and well tolerated. Bladder scan done after voiding showing 41 ml. Diaper changed and kept patient clean and dry. Physical assessment done. All needs attended promptly. Safety measures maintained. Fall prevention maintained. Bed in lock position, Side rails up x2 for safety. Continue to monitor and will endorse to oncoming nurse accordingly.
[2020-01-05 05:23] VITALS: BP 140/61
[2020-01-05] MEDS: METHYL SALICYLATE/MENTHOL CREAM 28 GM TUBE TOP SCH ×3 (06:43→22:08)
[2020-01-05] MEDS: PANTOPRAZOLE SODIUM 40 MG TABLET.DR PO SCH (06:43)
--- NOTE | 2020-01-05 06:53 | NUR ---
Post voiding bladder scan 27 ml.
[2020-01-05] MEDS: CLONAZEPAM 0.5 MG TABLET PO SCH ×2 (09:13→14:12)
[2020-01-05] MEDS: AMANTADINE HCL 100 MG CAPSULE PO SCH ×2 (09:13→20:19)
[2020-01-05] MEDS: CARBIDOPA/LEVODOPA 25-100MG TABLET PO SCH ×4 (09:13→20:19)
[2020-01-05] MEDS: LOSARTAN POTASSIUM 50 MG TABLET PO SCH (09:14)
[2020-01-05] MEDS ORDERED: BISACODYL 10 MG SUPP.RECT RC PRN (10:30)
[2020-01-05 10:33] VITALS: BP 157/72
--- NOTE | 2020-01-05 11:08 | NUR ---
Received patient awake in bed in stable condition. Continue therapy for participation in ADL activities. Patient continue monitoring urine output. Assisted to bathroom with walker. tolerated well. urinate once this morning. no complaint of pain/discomfort noted. will continue monitor
[2020-01-05 16:27] VITALS: BP 108/58
[2020-01-05] MEDS: MAGNESIUM HYDROXIDE 30 ML LIQUID UDC PO PRN (18:13)
[2020-01-05] MEDS ORDERED: FLEET ENEMA 133 ML BOTTLE RC PRN (18:15)
[2020-01-05] MEDS: DONEPEZIL 5 MG TABLET PO SCH (20:19)
[2020-01-05] MEDS: QUETIAPINE FUMARATE 25 MG TABLET PO SCH (20:19)
[2020-01-05] MEDS: TAMSULOSIN HCL 0.4 MG CAP.SR.24H PO SCH (20:19)
--- NOTE | 2020-01-05 20:42 | NUR ---
Received pt sitting in the wheelchair. AAO x3. No acute distress noted. Denies pain/ discomfort. Assisted pt back to bed, unstable. Due meds given as ordered, given one at a time with pudding. Tolerated well. Turned and repositioned. Both heels offloaded. Pt on monitoring for bladder scan after voiding. Safety measures maintained. Call light and personal items within reach. Will continue to monitor.
[2020-01-05 20:44] VITALS: BP 107/60
--- NOTE | 2020-01-05 23:50 | NUR ---
Pt assessed for urinary retention. Diaper with moderate amount of urine. Bladder scan 624mL. Cred, pt voided approximately 300mL in the urinal. No complaint of discomfort. Will continue to monitor.
[2020-01-06 04:41] VITALS: BP 119/59
--- NOTE | 2020-01-06 05:11 | NUR ---
Pt voided in diaper and urinal. Bladder scan done, post void 324mL. Will continue to monitor.
[2020-01-06] MEDS: PANTOPRAZOLE SODIUM 40 MG TABLET.DR PO SCH (06:06)
[2020-01-06] MEDS: METHYL SALICYLATE/MENTHOL CREAM 28 GM TUBE TOP SCH ×3 (06:06→22:03)
[2020-01-06 07:30] VITALS: BP 103/59
--- NOTE | 2020-01-06 08:00 | NUR ---
PATIENT VOIDED IN THE DIAPER LARGE AMOUNT, BLADDER SCAN 230ML
[2020-01-06] MEDS: CLONAZEPAM 0.5 MG TABLET PO SCH ×2 (08:59→16:33)
[2020-01-06] MEDS: LOSARTAN POTASSIUM 50 MG TABLET PO SCH (09:00)
[2020-01-06] MEDS: CARBIDOPA/LEVODOPA 25-100MG TABLET PO SCH ×4 (09:00→20:31)
[2020-01-06] MEDS: AMANTADINE HCL 100 MG CAPSULE PO SCH ×2 (09:01→20:31)
--- NOTE | 2020-01-06 15:03 | NUR ---
patient is alert,awake, no sob, resp even nonlabored, skin warm and dry to touch, noted improvement in tremors. no distress noted, able to void, continue to monitor for postvoiding residual as ordered. no distress noted.
[2020-01-06 16:00] VITALS: BP 119/62
--- NOTE | 2020-01-06 17:17 | NUR ---
patient voided three times in the diaper large amount, bladder scan was performed post voiding, result 318, and 487, patient refused to do straight cath on him, risks and benefits explained, however no other symptoms noted such no distended bladder noted, patient denied any discomfort upon light palpation of bladder, continue to monitor.
[2020-01-06] MEDS: MAGNESIUM HYDROXIDE 30 ML LIQUID UDC PO PRN (17:55)
--- NOTE | 2020-01-06 19:21 | NUR ---
Awake, in room, up on wheelchair at bedside. Denies any pain/discomforts at this time. No s/s of respiratory distress. Safety measures and fall prevention maintained. Continue care as planned.
[2020-01-06 20:16] VITALS: BP 111/61
[2020-01-06] MEDS: DONEPEZIL 5 MG TABLET PO SCH (20:30)
[2020-01-06] MEDS: TAMSULOSIN HCL 0.4 MG CAP.SR.24H PO SCH (20:31)
[2020-01-06] MEDS: QUETIAPINE FUMARATE 25 MG TABLET PO SCH (20:31)
--- NOTE | 2020-01-06 21:45 | NUR ---
Patient was back to bed with 1 person assist. Bladder incontinence noted. Blader scan performed showed 101 cc of urine retention. Good ann care/skin care rendered. Patient very cooperative. Repositioned for comfort.
--- NOTE | 2020-01-07 00:40 | NUR ---
Bladder incontinence noted, post void residual of 45 ml after bladder scan performed. Good ann care/skin care rendered.
[2020-01-07 05:05] VITALS: BP 140/65
[2020-01-07] MEDS: METHYL SALICYLATE/MENTHOL CREAM 28 GM TUBE TOP SCH ×3 (06:05→22:05)
--- NOTE | 2020-01-07 06:08 | NUR ---
Post void residual 63ml.
[2020-01-07] MEDS: PANTOPRAZOLE SODIUM 40 MG TABLET.DR PO SCH (06:26)
--- NOTE | 2020-01-07 06:32 | NUR ---
Shift End Report: Slept well. VS stable. No complaint presented. Bladder scan performed after each voiding/bladder incontinence as ordered. No s/s of bladder discomforts/distention noted. Made comfortable at all times. No significant event reported all night. All needs attended. Continue current rehab plan of care.
[2020-01-07 07:34] VITALS: BP 128/61
[2020-01-07] MEDS: LOSARTAN POTASSIUM 50 MG TABLET PO SCH (08:08)
[2020-01-07] MEDS: CARBIDOPA/LEVODOPA 25-100MG TABLET PO SCH ×4 (08:08→20:33)
[2020-01-07] MEDS: CLONAZEPAM 0.5 MG TABLET PO SCH ×2 (08:12→15:36)
[2020-01-07] MEDS: AMANTADINE HCL 100 MG CAPSULE PO SCH ×2 (08:13→20:34)
--- NOTE | 2020-01-07 09:00 | NUR ---
patient noted overconcernd about his BM, patient calls multiple times regarding his BM concern as well, despite explaining the medication interventions being done according doctors orders, brought to toilet multiple times, fleet enema given yesterday, MOM given yesterday, no results, however patient is not impacted upon digital assessment as ordered by MD. suppository administered today before breakfast. continue to monitor for effectiveness Addendum: 01/07/20 at 1130 by SAMANTHA AGUILAR RN, RN upon investigation staff reported patient made BM on Sunday on 01/04/2020
--- NOTE | 2020-01-07 11:29 | NUR ---
patient assisted to the toilet and made large BM.
--- NOTE | 2020-01-07 12:24 | NUR ---
Nera ID made aware about post voiding residual results are during day is more than 350ml, in 450s- 500s, and patient strongly refusing the straight cath, despite explaining the risks and benefits, however patient urinates large amount of urine in the toilet,and in diaper, no distended bladder noted, patient denied any bladder discomfort, per Nera ID change the order to straight cath if post voiding residual is more than 500ml, order noted.
[2020-01-07] MEDS: HYDROCODONE/APAP 5-325MG TABLET PO PRN (12:46)
[2020-01-07 14:53] VITALS: BP 127/63
--- NOTE | 2020-01-07 15:37 | NUR ---
Angel Taylor made aware about patient refusal of straight cath for post voiding residual, started on new medication hytrin at night, however patient denied any bladder discomfort. continue to monitor.
--- NOTE | 2020-01-07 18:00 | NUR ---
patient voided large amount in the diaper, bladder scan post voiding 385ml, patient denied any bladder discomfort
--- NOTE | 2020-01-07 19:27 | NUR ---
Awake, alert, sitting in a wheelchair, brake on. watching TV at this time. Denied any pain/discomforts. No s/s of respiratory distress. Safety measures and fall prevention maintained. Continue care as planned.
[2020-01-07 20:24] VITALS: BP 116/66
[2020-01-07] MEDS: TAMSULOSIN HCL 0.4 MG CAP.SR.24H PO SCH (20:33)
[2020-01-07] MEDS: QUETIAPINE FUMARATE 25 MG TABLET PO SCH (20:33)
[2020-01-07] MEDS: DONEPEZIL 5 MG TABLET PO SCH (20:33)
[2020-01-07] MEDS: TERAZOSIN 1 MG CAPSULE PO SCH (20:34)
--- NOTE | 2020-01-07 21:37 | NUR ---
Diaper soaked and wet with urine. Bladder scan performed as ordered, 119 ml post void scan. Will continue to monitor. Assisted back to bed. Made comfortable.
[2020-01-08 04:31] VITALS: BP 110/58
--- NOTE | 2020-01-08 05:34 | NUR ---
Shift End Report: Slept well. No complaint presented throughout the night. No fall/injury. All needs attended and met. No significant event report. VS stable. Continue current rehab plan of care.
[2020-01-08] MEDS: METHYL SALICYLATE/MENTHOL CREAM 28 GM TUBE TOP SCH ×3 (05:49→21:01)
[2020-01-08] MEDS: PANTOPRAZOLE SODIUM 40 MG TABLET.DR PO SCH (06:45)
[2020-01-08 08:00] VITALS: BP 113/52
[2020-01-08] MEDS: CLONAZEPAM 0.5 MG TABLET PO SCH ×2 (08:16→14:19)
[2020-01-08] MEDS: CARBIDOPA/LEVODOPA 25-100MG TABLET PO SCH ×4 (08:17→20:59)
[2020-01-08] MEDS: AMANTADINE HCL 100 MG CAPSULE PO SCH ×2 (08:18→21:00)
[2020-01-08] MEDS: LOSARTAN POTASSIUM 50 MG TABLET PO SCH (08:24)
--- NOTE | 2020-01-08 08:30 | NUR ---
Patient awake, alert, not in any form of distress, on room air. Assisted patient to sit on the wheelchair for breakfast and tolerated meal. Due medications administered and tolerated well. He denies any pain or discomfort. Kept clean and comfortable. Call light and frequently used items placed within patient's reach. Safety measures maintained.
[2020-01-08 15:27] VITALS: BP 113/63
--- NOTE | 2020-01-08 18:30 | NUR ---
Patient remained alert and no significant event noted during the shift. He was able to void freely and post void bladder scan done twice noted as 78cc and 110cc in morning and afternoon respectively. No complain of any discomfort or pain. Covid test done and sent to laboratory.
[2020-01-08 20:18] VITALS: BP 98/55
[2020-01-08] MEDS: DONEPEZIL 5 MG TABLET PO SCH (20:59)
[2020-01-08] MEDS: TAMSULOSIN HCL 0.4 MG CAP.SR.24H PO SCH (20:59)
[2020-01-08] MEDS: QUETIAPINE FUMARATE 25 MG TABLET PO SCH (20:59)
[2020-01-08] MEDS: TERAZOSIN 1 MG CAPSULE PO SCH (21:26)
--- NOTE | 2020-01-08 21:36 | NUR ---
OOBin wheelchair upo rounds. AAOx3-4 needs attended. VSS. Tolerated po meds well. Assisted back in bed with minimal assist. Compliant with meds. incontinent of urine/sometimes voids in the urinal. Bladder scan done as ordered PVD. Will monitor patient. Fall precautions maintained. Siderails up for safety.
[2020-01-09 04:00] VITALS: BP 133/57
[2020-01-09] MEDS: PANTOPRAZOLE SODIUM 40 MG TABLET.DR PO SCH (06:12)
[2020-01-09] MEDS: METHYL SALICYLATE/MENTHOL CREAM 28 GM TUBE TOP SCH ×3 (06:12→21:35)
--- NOTE | 2020-01-09 06:25 | NUR ---
End of shift notes: Slept well most of the shift. AAox3 No acute distress noted. Incontinent of urine x2. Kept clean and dry. Patient on bladder scan after each void. Will monitor patient. Bladder scan x2 234ml and 391 ml noted. Fall precautions maintained. Siderails up for safety. VSS.
[2020-01-09] MEDS: CLONAZEPAM 0.5 MG TABLET PO SCH ×2 (08:30→15:35)
[2020-01-09] MEDS: CARBIDOPA/LEVODOPA 25-100MG TABLET PO SCH ×4 (08:30→21:31)
[2020-01-09] MEDS: LOSARTAN POTASSIUM 50 MG TABLET PO SCH (08:47)
[2020-01-09 08:53] VITALS: BP 116/68
[2020-01-09] MEDS: AMANTADINE HCL 100 MG CAPSULE PO SCH ×2 (09:01→21:34)
--- NOTE | 2020-01-09 09:44 | NUR ---
Patient awake, alert, not in any form of distress, on room air. He denies any pain or discomfort. Patient voiding freely with post void bladder scan of 260ml. Kept clean and cofortable. Assisted patient to transfer to wheelchair for breakfast. Patient states he have less tremors than before and patient is noted to be a little bit able to feed self with lesser assistance. Due medications administered and patient tolerated well. Patient taken to rehab gym by occupational therapist for exercises. Will continue to monitor.
--- NOTE | 2020-01-09 12:34 | NUR ---
INTERDISCIPLINARY TEAM CONFERENCE
[2020-01-09 15:24] VITALS: BP 115/68
--- NOTE | 2020-01-09 16:45 | NUR ---
Received an order from Dr. Goss for Urology consult. Called Dr. Spencer [facility], spoke to Joshua from MD's office said he will inform MD. Faxed patient's face sheet to the office as requested.
--- NOTE | 2020-01-09 18:45 | NUR ---
Patient participated with PT and OT and speech therapy during the shift and tolerated well. He is assisted to the wheelchair to sit during meal times. Post void residual on bladder scan is 476ml before dinner. Patient denies any pain or discomfort. Will endorse accordingly.
[2020-01-09 20:26] VITALS: BP 115/50
[2020-01-09] MEDS: TAMSULOSIN HCL 0.4 MG CAP.SR.24H PO SCH (21:30)
[2020-01-09] MEDS: DONEPEZIL 5 MG TABLET PO SCH (21:31)
[2020-01-09] MEDS: QUETIAPINE FUMARATE 25 MG TABLET PO SCH (21:32)
[2020-01-09] MEDS: TERAZOSIN 1 MG CAPSULE PO SCH (21:35)
--- NOTE | 2020-01-09 21:40 | NUR ---
Received patient in bed, AAO x3 with episodes of forgetfulness. No acute distress or SOB was noted. On room air. No complain of pain. All due medications administered and well tolerated. Physical assessment done. All needs attended promptly. Safety measures maintained. Fall prevention maintained. Bed in locked position, Side rails up x2 for safety. Continue to monitor.
[2020-01-10 04:32] VITALS: BP 114/62
--- NOTE | 2020-01-10 04:57 | NUR ---
Patient refused to have bladder scan after voiding, stated "No more doing this". Risks and benefits explained, still refused. Continue to monitor.
[2020-01-10] MEDS: PANTOPRAZOLE SODIUM 40 MG TABLET.DR PO SCH (06:23)
[2020-01-10] MEDS: METHYL SALICYLATE/MENTHOL CREAM 28 GM TUBE TOP SCH ×3 (06:24→20:42)
--- NOTE | 2020-01-10 06:36 | NUR ---
Patient had three medium amount of urination throughout the shift. Explained him again about the importance of bladder scanning. He stated, "I did pee a lot, nothing was left there, I don't want to do it again". Tayo ue to monitor.
[2020-01-10 08:00] VITALS: BP 127/69
[2020-01-10] MEDS: AMANTADINE HCL 100 MG CAPSULE PO SCH ×2 (08:46→20:42)
[2020-01-10] MEDS: CARBIDOPA/LEVODOPA 25-100MG TABLET PO SCH ×4 (08:46→20:41)
[2020-01-10] MEDS: CLONAZEPAM 0.5 MG TABLET PO SCH ×2 (08:47→15:34)
[2020-01-10] MEDS: LOSARTAN POTASSIUM 50 MG TABLET PO SCH (08:47)
[2020-01-10 15:41] VITALS: BP 123/66
[2020-01-10 20:19] VITALS: BP 111/56
[2020-01-10] MEDS: TAMSULOSIN HCL 0.4 MG CAP.SR.24H PO SCH (20:41)
[2020-01-10] MEDS: TERAZOSIN 1 MG CAPSULE PO SCH (20:41)
[2020-01-10] MEDS: QUETIAPINE FUMARATE 25 MG TABLET PO SCH (20:41)
[2020-01-10] MEDS: DONEPEZIL 5 MG TABLET PO SCH (20:41)
--- NOTE | 2020-01-10 20:58 | NUR ---
Received patient in bed, AAO x3 with episodes of forgetfulness speaks slowly and softly. No acute distress or SOB was noted. On room air. No complaints of pain at this time. All due medications administered and well tolerated, crushed and given with pudding. Physical assessment done. All needs attended promptly. Safety measures maintained. Fall prevention maintained. Bed in locked position, Side rails up x2 for safety. Continue to monitor through the night.
--- NOTE | 2020-01-11 05:54 | NUR ---
Slept well. VS stable. No complaint presented. No s/s of bladder discomforts/distention noted. Patient had a full void in the diaper and 1 wet incontinent pad. Post void completed bladder scan a noted 222cc. Kept comfortable, clean and dry at all times. No significant event reported all night. All needs attended. Continue current rehab plan of care.
[2020-01-11] MEDS: METHYL SALICYLATE/MENTHOL CREAM 28 GM TUBE TOP SCH ×2 (06:03→13:04)
[2020-01-11] MEDS: PANTOPRAZOLE SODIUM 40 MG TABLET.DR PO SCH (06:08)
[2020-01-11 06:36] VITALS: BP 129/60
[2020-01-11 08:00] VITALS: BP 124/53
[2020-01-11] MEDS: CARBIDOPA/LEVODOPA 25-100MG TABLET PO SCH ×2 (08:46→13:03)
[2020-01-11 08:47] VITALS: BP 128/51
[2020-01-11] MEDS: AMANTADINE HCL 100 MG CAPSULE PO SCH (08:47)
[2020-01-11] MEDS: CLONAZEPAM 0.5 MG TABLET PO SCH ×2 (08:47→14:33)
[2020-01-11] MEDS: LOSARTAN POTASSIUM 50 MG TABLET PO SCH (08:47)
--- NOTE | 2020-01-11 16:12 | NUR ---
patient discharged to [facility], no sob, resp even nonlabored, skin warm and dry to touch, instructions given to patient and sent with ambulance, patient verbalized understanding of discharge instructions, skin intact, report given to Fabien from [facility], patient is stable condition, ID band removed, patient picked up by [facility] ambulance. belongings are accounted and signed, sent with patient patient family met patient outside in the parking lot with [facility] ambulance.
== END 2020-01-11 16:10 | DRG 871 ==
PROVIDERS: ADMIT Physical Medicine & Rehabilitation Pain Medicine; ATTEND Physical Medicine & Rehabilitation Pain Medicine
DX: A41.9 Sepsis, unspecified organism (principal); G92 Toxic encephalopathy; N17.0 Acute kidney failure with tubular necrosis; J18.9 Pneumonia, unspecified organism; N39.0 Urinary tract infection, site not specified; D68.59 Other primary thrombophilia; E44.0 Moderate protein-calorie malnutrition; N13.8 Other obstructive and reflux uropathy; F03.90 Unspecified dementia, unspecified severity, without behavioral disturbance, psychotic disturbance, mood disturbance, and anxiety; Z85.038 Personal history of other malignant neoplasm of large intestine; Z92.21 Personal history of antineoplastic chemotherapy; R53.1 Weakness; B96.5 Pseudomonas (aeruginosa) (mallei) (pseudomallei) as the cause of diseases classified elsewhere; D50.9 Iron deficiency anemia, unspecified; F02.80 Dementia in other diseases classified elsewhere, unspecified severity, without behavioral disturbance, psychotic disturbance, mood disturbance, and anxiety; G31.83 Neurocognitive disorder with Lewy bodies; F39 Unspecified mood [affective] disorder; F41.1 Generalized anxiety disorder; G47.00 Insomnia, unspecified; G89.29 Other chronic pain; I10 Essential (primary) hypertension; M17.0 Bilateral primary osteoarthritis of knee; N40.1 Benign prostatic hyperplasia with lower urinary tract symptoms; Z86.73 Personal history of transient ischemic attack (TIA), and cerebral infarction without residual deficits; Z90.49 Acquired absence of other specified parts of digestive tract; K21.9 Gastro-esophageal reflux disease without esophagitis; R41.89 Other symptoms and signs involving cognitive functions and awareness; Z88.6 Allergy status to analgesic agent; Z88.8 Allergy status to other drugs, medicaments and biological substances; R33.8 Other retention of urine; R53.81 Other malaise
CPT/HCPCS: 36415; 70551; 71045; 83550; 83735; 83986; 84100; 84153; 85025; 87070; 87086; 87205; A4217; A4663; C1758; J3301; J3490